=== PATIENT | male | born 1980 | race Caucasian/White ===

== ENCOUNTER 2021-06-19 21:33 | Emergency (ER) | payer MEDICAID ==
[~2021-06-19] VITALS: Ht 165.1 cm; Wt 72.7 kg
[2021-06-19] MEDS ORDERED: NALO4SPR NS (21:41)
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
[2021-06-19 23:02] VITALS: BP 120/73
== END 2021-06-19 23:10 | disposition home or self-care (01) ==
LOC: ER 21:33
DX: T40.0X1A Poisoning by opium, accidental (unintentional), initial encounter (principal); Y92.89 Other specified places as the place of occurrence of the external cause
CPT/HCPCS: 99283